=== PATIENT | male | born 1985 | race Caucasian/White ===

== ENCOUNTER 2021-05-26 09:01 | Emergency (ER) | payer OTHER ==
[2021-05-26 10:05] LABS: BASOPHIL 1.5 % (0-2); EOSINOPHIL 1.2 % (0-5); HCT 39.2 % (42.0-52.0); HGB 12.8 g/dl (13.2-18.0); LYMPHOCYTE 23.6 % (15-48); MCH 33.2 pg (25.0-31.0); MCHC 32.7 g/dL (32.0-36.0); MCV 101.6 fL (78.0-100.0); MONOCYTE 15.9 % (0-12); MPV 12.2 fL (6.0-9.5); NEUTROPHIL 57.5 % (41-80); NRBC 0; RBC 3.86 M/uL (4.70-6.00); RDW 14.1 % (11.5-14.0); WBC 5.9 K/uL (4.0-10.5)
[2021-05-26 10:32] LABS: ALBUMIN 3.4 g/dL (3.4-5.0); ALKALINE PHOSHATASE 87 U/L (46-116); ALT 45 U/L (16-63); AST 105 U/L (15-37); BILIRUBIN - TOTAL 2.5 mg/dL (0.2-1.0); BUN 13 mg/dL (7-18); BUN/CREAT RATIO (CALC) 16.9 RATIO; CHLORIDE 106 mmol/L (98-107); CO2 (BICARBONATE) 26 mmol/L (21-32); CREATININE 0.77 mg/dL (0.67-1.17); GLOBULIN (CALCULATION) 4.2 g/dL; GLUCOSE 85 mg/dL (74-106); POTASSIUM 3.2 mmol/L (3.5-5.1); TOTAL PROTEIN 7.6 g/dL (6.4-8.2)
[2021-05-26 10:51] LABS: PLT 59 K/uL (150-400)
[2021-05-26 11:27] LABS: AMPHETAMINES NEGATIVE (NEGATIVE); BARBITURATES NEGATIVE (NEGATIVE); ECSTASY (MDMA) NEGATIVE (NEGATIVE); MARIJUANA (THC) NEGATIVE (NEGATIVE); METHADONE NEGATIVE (NEGATIVE); OPIATES NEGATIVE (NEGATIVE); OXYCODONE NEGATIVE (NEGATIVE)
[2021-05-26 19:09] LABS: C-REACTIVE PROTEIN < 0.20 mg/dL (<=0.90)
[2021-05-26] MEDS ORDERED: CEPHALEXIN500 MG PO (20:07)
== END 2021-05-26 22:52 ==
LOC: FER 09:01
PROVIDERS: Emergency Medicine; Internal Medicine
DX: F23 Brief psychotic disorder (principal); F10.10 Alcohol abuse, uncomplicated; Z20.822 Contact with and (suspected) exposure to COVID-19
CPT/HCPCS: 36415; 70450; 80053; 80305; 82140; 84443; 85025; 86140; 96372; G0480; J3360; J3411; J3475; J7030; U0002